=== PATIENT | female | born 1945 | race Caucasian/White ===

== ENCOUNTER 2024-07-01 12:50 | Observation (INO) | payer MEDICARE, SELFPAY ==
[2024-07-01] VITALS (13 sets, daily range): BP systolic 125–154; BP diastolic 64–88; PULSE 58–75; RESP 16–20; TEMP 36.7–36.8; O2SAT 91–98; BMI 36.6
--- NOTE | 2024-07-01 13:03 | XR_ITS ---
FINAL REPORT CLINICAL HISTORY: .fall, right knee pain FINDINGS: AP, lateral and oblique views of the right knee were obtained. There is no prior exam for comparison. There is no acute osseous abnormality of the right knee. There is mild degenerative joint disease. The soft tissues are normal. There is no joint effusion. IMPRESSION: No acute osseous abnormality of the right knee. Reviewed, Interpreted and Dictated by Kristy Thibodeaux MD Transcribed by Sophia Landrum Authenticated and [facility]
--- NOTE | 2024-07-01 13:03 | XR_ITS ---
FINAL REPORT CLINICAL HISTORY: Shortness of breath COMPARISON: None FINDINGS: A portable view of the chest was obtained. There is cardiomegaly. A left pacemaker is present. The mediastinal silhouette is within normal limits. There are chronic increased interstitial markings. There is no focal infiltrate, effusion, or pneumothorax. IMPRESSION: Cardiomegaly. Otherwise, no acute abnormality. Reviewed, Interpreted and Dictated by Kristy Thibodeaux MD Transcribed by Penny Cortez Authenticated and [facility]
--- NOTE | 2024-07-01 13:04 | CA_ITS ---
FINAL REPORT CLINICAL HISTORY: Right leg warm to touch, redness, edema s/p fall FINDINGS: DUPLEX VENOUS SONOGRAPHY OF THE RIGHT LOWER EXTREMITY Multiple transverse and longitudinal scans were performed of the femoropopliteal deep venous system, with augmentation and compression maneuvers. Normal phasic flow was noted in the visualized deep venous system. No intraluminal increased echogenicity is noted to suggest thrombus. There is normal compression and augmentation of the venous structures. No abnormal venous collaterals are seen. IMPRESSION: No evidence of deep venous thrombosis of the right lower extremity. Reviewed, Interpreted and Dictated by Kristy Thibodeaux MD Transcribed by Mishel Stewart Authenticated and [facility]
[2024-07-01] MEDS: OXYCODONE 5MG W/APAP 325MG TABLET 1 EACH PO (13:20)
--- NOTE | 2024-07-01 13:29 | ED_ITS ---
<Statement entered by Yessica White DO - 07/01/24 15:50> I was consulted by the DEAN, and we discussed the complexity of the problems being addressed. I approved the treatment and management plan for this patient's care in the emergency department, thus performing a substantive portion of the medical decision making. Yessica White DO Discharge Plan Disposition Chief Complaint: Extremity Injury, Lower Discharge ED Provider: Yessica White General Adult HPI General Chief complaint: Extremity Injury, Lower Stated complaint: R knee pain shoots down leg Time Seen by Provider: 07/01/24 12:58 Mode of Arrival: Wheelchair Source of Information: Patient and Relative Description of Symptoms (Recalled from ER Triage Doc. by RN): pt daughter brought her here for rihgt knee pain that started on friday and has continued to get worse, pt unable to bear weight History of Present Illness HPI narrative: patient is a 78-year-old female PMHx COPD, bipolar, CHF, chronic A-fib who presents to the ED for complaints of right knee pain, inability to care for herself. Patient states on she had a fall, was not evaluated for this fall or since the fall, reports that she did not fall on her right knee however her right knee was injured during the fall. Related Data Home Medications ?Medication ?Instructions ?Recorded ?Confirmed amlodipine 10 mg tablet 10 mg PO DAILY 07/01/24 07/01/24 hydralazine 10 mg tablet 10 mg PO BID 07/01/24 07/01/24 mirtazapine 15 mg tablet 15 mg PO DAILY 07/01/24 07/01/24 olanzapine 5 mg tablet 5 mg PO DAILY 07/01/24 07/01/24 rivaroxaban 15 mg tablet (Xarelto) 15 mg PO DAILY 07/01/24 07/01/24 sertraline 100 mg tablet 100 mg PO DAILY 07/01/24 07/01/24 simvastatin 20 mg tablet 20 mg PO DAILY 07/01/24 07/01/24 Allergies Allergy/AdvReac Type Severity Reaction Status Date / Time alprazolam (From Xanax) Allergy Unknown Verified 07/01/24 13:39 allergy reaction diphenhydramine (From Allergy Unknown Verified 07/01/24 13:39 Benadryl) allergy reaction doxycycline Allergy Unknown Verified 07/01/24 13:39 allergy reaction latex Allergy Unknown Verified 07/01/24 13:39 allergy reaction lorazepam (From Ativan) Allergy Unknown Verified 07/01/24 13:39 allergy reaction nicotine Allergy Unknown Verified 07/01/24 13:39 allergy reaction Penicillins Allergy Hives Verified 07/01/24 13:39 pseudoephedrine (From Allergy Unknown Verified 07/01/24 13:39 Sudafed) allergy reaction shellfish derived Allergy Unknown Verified 07/01/24 13:39 allergy reaction tetracycline Allergy Unknown Verified 07/01/24 13:39 allergy reaction varenicline (From Chantix) Allergy Unknown Verified 07/01/24 13:39 allergy reaction clindamycin AdvReac Nausea Verified 07/01/24 13:39 Sulfa (Sulfonamide AdvReac Vomiting Verified 07/01/24 13:39 Antibiotics) sulfamethoxazole (From AdvReac Diarrhea Verified 07/01/24 13:39 Bactrim) trimethoprim (From Bactrim) AdvReac Diarrhea Verified 07/01/24 13:39 PFSH PFSH Disclaimer: The information contained in this section may have been updated after the patient was seen, as this information can be updated by other users. Medical History COPD (chronic obstructive pulmonary disease) Bipolar 1 disorder CHF (congestive heart failure) Chronic a-fib Surgical History (Updated 07/01/24 @ 13:40 by Ashvin Hogan RN) History of tonsillectomy History of appendectomy History of cholecystectomy History of total left hip replacement Social History Smoking Status: Never smoker alcohol intake: never current occupational status: unemployed Travel in the last 8 weeks?: None Other Medical History Have you received the Pneumonia Vaccine: No ROS Obtained: Yes Systems reviewed as appropriate & no additional complaints except as documented Physical Exam General General appearance: alert and in no apparent distress Head Head exam: atraumatic and normocephalic Eye Eye exam: Present normal appearance and PERRL ENT ENT exam: Present normal exam Neck Neck exam: Present normal inspection Chest Chest inspection: Present normal inspection and symmetric chest wall rise; Absent tenderness Respiratory Respiratory exam: Present normal lung sounds bilaterally Cardiovascular Cardiovascular exam: Present regular rate Abdominal Exam Abdominal exam: Present soft and normal bowel sounds; Absent tenderness Extremities Exam Extremities exam: Present other (Right lower extremity mild erythema, neurovascular status intact. Right knee tenderness, generalized. Mild inferior patella edema) Back Exam Back exam: Present normal inspection and full ROM Neurological Exam Neurological exam: Present alert and oriented X3 Psychiatric Psychiatric exam: Present normal affect and normal mood Skin Skin exam: Present warm and dry Medical Decision Making Medical Records Screening: Per USPSTF and CDC recommendations, given the prevalence of disease in our region, it is our hospital?s policy to screen for HIV and viral Hepatitis for all patients aged 18 and over and those with ongoing risk factors. Umberto Inquiry Pt receiving controlled substance: No Vital Signs: 07/01/24 13:01 07/01/24 13:09 07/01/24 13:30 Temperature 98.2 F Temperature Source Oral Pulse Rate 58 L 61 Pulse Rate [Left Radial] 73 Respiratory Rate 20 Blood Pressure 134/66 153/80 H Blood Pressure [Right Arm] 154/72 H Blood Pressure Mean Blood Pressure Mean [Right Arm] 99 02 Sat by Pulse Oximetry 95 95 95 Oxygen Delivery Method Room Air 07/01/24 14:00 07/01/24 14:30 07/01/24 15:05 Temperature Temperature Source Pulse Rate 68 67 Pulse Rate [Left Radial] Respiratory Rate Blood Pressure 153/80 H 126/75 133/88 Blood Pressure [Right Arm] Blood Pressure Mean 105 Blood Pressure Mean [Right Arm] 02 Sat by Pulse Oximetry 92 L 93 L Oxygen Delivery Method 07/01/24 15:45 07/01/24 16:00 07/01/24 16:30 Temperature Temperature Source Pulse Rate 68 70 73 Pulse Rate [Left Radial] Respiratory Rate Blood Pressure 125/65 141/70 H 148/79 H Blood Pressure [Right Arm] Blood Pressure Mean Blood Pressure Mean [Right Arm] 02 Sat by Pulse Oximetry 91 L 94 L 94 L Oxygen Delivery Method Lab Data Lab Results 07/01/24 14:04: WBC 8.3, RBC 4.63, Hgb 13.9, Hct 42.5, MCV 91.8, MCH 30.0, MCHC 32.7, RDW 12.8, Plt Count 243, MPV 9.5, Neut % (Auto) 64.1, Lymph % (Auto) 22.9, [place] % (Auto) 11.1 H, Eos % (Auto) 1.1, Baso % (Auto) 0.6, Neut # (Auto) 5.3, Lymph # (Auto) 1.9, [place] # (Auto) 0.9, Eos # (Auto) 0.1, Baso # (Auto) 0.1, ESR 78 H, Sodium 137, Potassium 4.3, Chloride 106, Carbon Dioxide 29, Anion Gap 6.3, BUN 21 H, Creatinine 0.90, Estimated Creat Clear 65, Estimated GFR 60, Est GFR ( Amer) 73, Glucose 106 H, Calcium 10.0, Total Bilirubin 0.5, AST 34, ALT 17, Alkaline Phosphatase 90, C-Reactive Protein 30.7 H, Total Protein 7.5, Albumin 4.3, Globulin 3.2, Albumin/Globulin Ratio 1.3 07/01/24 14:04 07/01/24 14:04 Orders (Tests/Meds): ED MEDICATIONS Discontinued Medications Generic Name Dose Route Start Last Admin Trade Name Freq PRN Reason Stop Dose Admin Oxycodone/Acetaminophen 1 each 07/01/24 13:03 07/01/24 13:20 Oxycodone 5mg W/Apap 325mg Tablet PO 07/01/24 13:04 1 each ONCE ONE Administration ORDERS Category Date Time Status CXR --portable [XR chest portable] Stat Exams 07/01/24 13:03 Completed Knee XR right 3 views [XR knee RT 3V] Stat Exams 07/01/24 13:03 Completed CBC w/Auto Diff [Complete Blood Count Auto Diff] Stat Lab 07/01/24 14:04 Completed CMP [Comprehensive Metabolic Panel] Stat Lab 07/01/24 14:04 Completed CRP [C-Reactive Protein] Stat Lab 07/01/24 14:04 Completed Erythrocyte Sedimentation Rate Stat Lab 07/01/24 14:04 Completed CA venous doppler LE RT Stat Y 07/01/24 13:04 Completed Medical Decision Narrative: In summary, patient is a 78-year-old female PMHx COPD, bipolar, CHF, chronic A- fib who presents to the ED for complaints of right knee pain, inability to care for herself. Patient states on East she had a fall, was not evaluated for this fall or since the fall, reports that she did not fall on her right knee however her right knee was injured during the fall. She states that her right knee pain is worse and causing her to be unable to care for herself at home. Patient denies any other complaints. She denies hitting her head, denies fever, chills, body aches, headache, visual disturbances, posterior neck pain, back pain, chest pain, shortness of breath, abdominal pain, nausea, vomiting, dysuria, diarrhea Upon initial evaluation patient is alert, oriented and cooperative. She is hemodynamically stable. Her physical exam is remarkable for right knee generalized tenderness, right lower extremity mild erythema, neurovascular status intact. Differential diagnosis include infectious process, fracture, malalignment, septic arthritis, cellulitis, DVT, among others. Discussed with patient that we will evaluate with hematologic labs, DVT ultrasound, we have contacted social work to assist with home needs and will proceed as needed. Hematologic labs reviewed, CBC unremarkable for any leukocytosis, stable H&H. CMP unremarkable for any actionable abnormalities. CRP 30.7, ESR 78. Final read of the chest x-ray remarkable for cardiomegaly, no acute findings. X-ray of the knee unremarkable for any osseous abnormality. Venous duplex unremarkable for any DVT. After patient was evaluated by PT OT, they recommend that patient have placement. Discussed with patient that due to PT OT recommendations, is best that we admit her for usp placement. Advised her that she does have a right lower extremity cellulitis, we will treat this with oral Bactrim. Patient is agreeable to plan of care at this time. She remains hemodynamically stable. Critical Care Critical Care Time Critical Care Time: No
--- NOTE | 2024-07-01 13:33 | PC.NURSE ---
Case management notified of need to possible placement.
[2024-07-01 14:19] LABS: Basophils # 0.1 K/mm3 (0-0.2); Basophils % 0.6 % (0.1-2.0); Eosinophils # 0.1 Kmm3 (0.0-0.4); Eosinophils % 1.1 % (0.1-12.0); Hematocrit 42.5 % (37.0-47.0); Hemoglobin 13.9 g/dL (12.2-16.2); Immature Granulocytes # 0.02 10^3uL; Immature Granulocytes % 0.2 %; Lymphocytes # 1.9 K/mm3 (0.7-4.5); Lymphocytes % 22.9 % (10-50); Mean Corpuscular HGB Conc 32.7 g/dL (31.8-35.4); Mean Corpuscular Volume 91.8 fl (81-99); Mean Platelet Volume 9.5 fl (7.4-10.4); Monocytes # 0.9 K/mm3 (0.1-1.0); Monocytes % 11.1 % (1.7-9.3); Neutrophils # 5.3 K/mm3 (1.8-7.8); Neutrophils % 64.1 % (37.0-80.0); Nucleated Red Blood Cells # 0 10^3/uL; Nucleated Red Blood Cells % 0 %; Platelet Count 243 K/mm3 (142-424); Red Blood Count 4.63 M/mm3 (4.20-5.40); Red Cell Distribution Width 12.8 % (11.5-17.5); Red Cell Distribution Width-SD 43.2 fL; White Blood Count 8.3 K/mm3 (4.8-10.8)
[2024-07-01 14:29] LABS: Alanine Aminotransferase 17 U/L (12-78); Albumin Level 4.3 g/dl (3.5-5.0); Albumin/Globulin Ratio 1.3 (1.1-1.8); Alkaline Phosphatase 90 U/L (38-126); Anion Gap 6.3 mEq/L (5-15); Aspartate Amino Transferase 34 U/L (14-36); Bilirubin,Total 0.5 mg/dl (0.2-1.3); Blood Urea Nitrogen 21 mg/dl (7-17); Carbon Dioxide 29 mmol/L (22.0-30.0); Chloride 106 mmol/L (98-107); Creatinine Clearance Estimated 65 mL/min (50-200); Estimated Glomerular Filt Rate 60 ml/min (>60); GFR (African American) 73 ML/MIN (>60); Globulin 3.2 g/dL (1.3-3.2); Glucose 106 mg/dl (74-100); Potassium 4.3 mmoL/L (3.5-5.1); Sodium 137 mmol/L (136-145); Total Protein,Serum 7.5 g/dl (6.3-8.2)
[2024-07-01 14:34] LABS: C-Reactive Protein 30.7 mg/L (0-4)
[2024-07-01 14:59] LABS: Erythrocyte Sedimentation Rate 78 mm/hr (0-30)
--- NOTE | 2024-07-01 16:37 | HMH.PTEV ---
Physical Therapy Evaluation Rehab PT IP Evaluation Start: 07/01/24 16:21 Freq: ONCE Status: Active Protocol: Document 07/01/24 16:26 JJ (Rec: 07/01/24 16:36 JJ [id number]) Subjective/History History History Per h&p, In summary, patient is a 78-year-old female PMHx COPD, bipolar, CHF, chronic A- fib who presents to the ED for complaints of right knee pain , inability to care for herself. Patient states on Easter she had a fall, was not evaluated for this fall or since the fall, reports that she did not fall on her right knee however her right knee was injured during the fall. She states that her right knee pain is worse and causing her to be unable to care for herself at home. Patient denies any other complaints. She denies hitting her head, denies fever, chills, body aches, headache, visual disturbances, posterior neck pain, back pain, chest pain, shortness of breath, abdominal pain, nausea, vomiting, dysuria, diarrhea Subjective Subjective Pt is alert and orientedx3. Dtr present in room during evaluation. Pt reports that she lives alone and was completely independent with all ADLs and mobility prior to just a few days ago when her R knee began to hurt. Pt reports that she did utilize a rollator walker for most ambulation. Pt reports that she is currently unable to walk and reports excruciating right knee pain with weight bearing. New diagnosis of cancer in past 12 No months? [facility] How much help from another person do you currently need... Turning from your back to your side A lot while in a flat bed without using bedrails? Moving from lying on back to sitting on A lot the side of a flat bed without using bedrails? Moving to and from a bed to a chair ( A lot including a wheelchair)? Standing up from a chair using your arms A little ? (e.g., wheelchair, bedside chair) Walking in hospital room? A lot Climbing 3-5 steps with a railing? A lot Mobility Score 13 Mobility Level [facility] Mobility Calculator Mobility 4 Move to chair/ commode Rehab PT IP Eval Objective Appearance Patient Behavior Appropriate,Patient Baseline Patient Orientation Person,Place,Time Difficulty following instructions none Speech Pattern Clear,Patient Baseline Ambulation Patient Able to Ambulate Yes Ambulation Observation IP General Gait Pattern Observation Antalgic Gait,Decrease Weight Bear (R),Decrease Stride Lngth (L) Ambulation Distance (feet) 2 Ambulation Ability Moderate x 2 (50% assist) Balance Ability to Arise Able, uses arms to help Sitting Balance Leans or slides in chair Standing Balance Unsteady Dynamic Sitting Balance Ability Fair Dynamic Standing Balance Ability Poor Transfers Bed Transfer Ability Moderate x 2 (50% assist) Chair Transfer Ability Moderate x 2 (50% assist) Sit to Stand Bed Transfer Ability Moderate x 2 (50% assist) Sit to Stand Chair Transfer Ability Moderate x 2 (50% assist) Rehab PT IP prob,goals,plan Problems Date of Evaluation: 07/01/24 PT IP Problems Bed Mobility,Transfers,Gait, Balance,Self care,Safety Rehab Potential Rehab Potential Good Equipment Needs Assistive Devices None / NA Plan PT Intervention Plan Bed Mobility,Transfers,Gait, Balance,Self care,Safety, Therapeutic Exercise PT Plan Frequency BID Duration LOS Discharge Goals Bed Transfer Ability Minimal x 1 (25% assist) Sit to Stand Chair Transfer Ability Minimal x 1 (25% assist) Ambulation Assistive Device Rolling Walker Ambulation Distance (feet) 10 Discharge Plan PT Discharge Plan PT is recommending placement for further rehab upon discharge from the hospital. Pt does not present safely for a discharge to home at this time. Skilled PT would also benefit this pt during her acute stay. Eval Complexity Eval Charge Codes 51100 - Moderate Complexity PHYSICIAN CERTIFICATION: I certify the specified therapy services for Beba Trujillo are required, authorized, and reviewed every 30 days.
--- NOTE | 2024-07-01 16:49 | HMH.OTEV ---
OT Inpatient Evaluation Rehab OT IP Evaluation Start: 07/01/24 16:22 Freq: ONCE Status: Active Protocol: Document [facility]/01/24 16:[facility] (Rec: 07/01/24 16:49 [facility] [id number]) Rehab OT IP Assessment Subjective History Per h&p, In summary, patient is a 78-year-old female PMHx COPD, bipolar, CHF, chronic A- fib who presents to the ED for complaints of right knee pain , inability to care for herself. Patient states on Easter she had a fall, was not evaluated for this fall or since the fall, reports that she did not fall on her right knee however her right knee was injured during the fall. She states that her right knee pain is worse and causing her to be unable to care for herself at home. Patient denies any other complaints. She denies hitting her head, denies fever, chills, body aches, headache, visual disturbances, posterior neck pain, back pain, chest pain, shortness of breath, abdominal pain, nausea, vomiting, dysuria, diarrhea [ End ] Subjective Pt is alert and orientedx3. Dtr present in room during evaluation. Pt reports that she lives alone and was completely independent with all ADLs and mobility prior to just a few days ago when her R knee began to hurt. Pt reports that she did utilize a rollator walker for most functional transfers. Pt reports that she is currently unable to walk and reports excruciating right knee pain with weight bearing. [ End ] Objective Patient Orientation Person,Place,Birthday Right Upper Extremity Gross ROM WFL Left Upper Extremity Gross ROM WFL Bed Mobility bed mobility-scooting,bed mobility - supine/sit Assist Level Moderate x 2 (50% assist) Transfer Training Sit/Stand/Step Transfer Assist Level Moderate x 2 (50% assist) Rehab OT IP prob,goals,plan Problems Date of Evaluation: 07/01/24 OT IP Problems Bed Mobility,Transfers,Balance ,Self care,Safety Rehab Potential Rehab Potential Good Equipment Needs Assistive Devices Rolling / Wheeled Walker Plan OT intervention Plan Bed Mobility,Transfers,Balance ,Self care,Safety,Therapeutic Exercise OT Plan Frequency Daily Duration LOS Discharge Goals Bed Mobility Ability Assistance x1 Sit to Stand Chair Transfer Ability Moderate x 1 (50% assist) Chair Transfer Ability Moderate x 1 (50% assist) Chair Transfer Technique Sit to/from Ambulatory Chair Transfer Assistive Devices Rolling Walker Feeding Ability Assist with Tray Set Up Lower Body Dressing Ability Maximum Assistance Upper Body Dressing Ability Minimal Assistance Bathing Ability Maximum Assistance Performing Toilet Hygiene Ability Minimal Assistance Overall Commode/Toilet Transfer Ability Minimal Assistance,Moderate Assistance Commode/Toilet Transfer Technique Sit to/from Ambulatory Commode/Toilet Transfer Assistive Grab Bars Devices Discharge Plan OT Discharge Plan OT is recommending placement for further rehab upon discharge from the hospital. Pt does not present safely for a discharge to home at this time. Skilled OT would also benefit this pt during her acute stay. Eval Complexity Eval Charge Codes 16582 - Moderate Complexity PHYSICIAN CERTIFICATION: I certify the specified therapy services for Beba Trujillo are required, authorized, and reviewed every 30 days.
--- NOTE | 2024-07-01 16:52 | PC.NURSE ---
consulting hospitalist for admission
--- NOTE | 2024-07-01 17:29 | PC.NURSE ---
rounded on patient, no needs voiced at this time.
--- NOTE | 2024-07-01 17:59 | PC.NURSE ---
pt rounded on no needs at this time.
--- NOTE | 2024-07-01 18:02 | PC.NURSE ---
CALLED REPORT TO [facility] HOWEVER ROOM IS NOT CLEAN ER CHARGE MADE AWARE
--- NOTE | 2024-07-01 18:50 | P.HP_ITS ---
<Statement entered by Chepe Beltrán MD - 07/03/24 13:00> I personally evaluated the patient and agree with the plan of care as outlined by the [facility]. History of Present Illness *Admission Date: 07/01/24 *Reason for visit:: Knee pain *History of present illness: This is a 78-year-old female who has a past medical history significant for hypertension, hyperlipidemia, and atrial fibrillation (currently prescribed Xarelto), who presents with a chief complaint of inability to perform her ADLs due to right knee pain from a fall sustained during . Due to patient's symptoms, she presented to the emergency room for evaluation. While in the emergency room, plain films of the right knee were negative for any acute osseous abnormality, chest x-ray revealed cardiomegaly, and venous Doppler revealed no evidence of DVT to right lower extremity. Patient was evaluated by physical therapy and Occupational Therapy who recommended skilled level rehab. As a result, patient has been admitted for further management. During my evaluation of the patient, patient states she fell on and she was okay after the fall. Patient states she cannot stand. She states that she did have a laceration/abrasion to her left upper extremity that healed. Over period of time, patient had increasing difficulty performing her ADLs due to pain to the right knee. After the fall, patient did not have any evaluation with any healthcare facility. Unfortunately, her pain has become unbearable for her to manage at home. She did state that she did not lose consciousness and remembers the fall. She is currently denying any chest pain, lightheadedness, dizziness, fever, chills, rigors, nausea, vomiting, or diarrhea. Additional pertinent vitals obtained include ESR 78, BUN 21, blood glucose of 106, and CRP of 30.7. [facility] Disclaimer: The information contained in this section may have been updated after the patient was seen, as this information can be updated by other users. Medical History (Updated 07/01/24 @ 18:59 by Ariel Vaughn APRN) COPD (chronic obstructive pulmonary disease) Bipolar 1 disorder CHF (congestive heart failure) Chronic a-fib Surgical History (Updated 07/01/24 @ 13:40 by Ashvin Hogan RN) History of tonsillectomy History of appendectomy History of cholecystectomy History of total left hip replacement Social History (Updated 07/01/24 @ 17:56 by Neida Bryant APRN) Smoking Status: Never smoker alcohol intake: never current occupational status: unemployed Travel in the last 8 weeks?: None Have you lived/traveled outside US in past 30 days?: No Contact w/someone who lives/traveled outside US past 30 days?: No Exposure to someone with infectious disease in past 14 days?: No Do you have a fever (greater than 100.4 F or 38 C)?: No Have you tested positive for COVID-19?: No Exposed to someone with COVID-19 in past 14 days?: No Do you have a sore throat?: No Do you have a cough?: No Do you have any weakness?: No Do you have any diarrhea?: No Are you experiencing any unusual bleeding?: No Do you have any muscle aches/pain?: No Do you have any abdominal pain?: No Are you experiencing loss of taste or smell?: No Other Medical History Have you received the Pneumonia Vaccine: No Review of Systems Review of Systems Review of systems:: pertinent systems reviewed and negative unless documented below Constitutional Constitutional: Reports other Comments: Difficulty ambulating due to pain in right knee from prior fall Eyes Eyes: Reports system reviewed and no additional complaints, except as documented ENT Ears, Nose, Mouth, and Throat: Reports system reviewed and no additional complaints, except as documented *Cardiovascular Cardiovascular: Reports system reviewed and no additional complaints, except as documented *Respiratory Respiratory: Reports system reviewed and no additional complaints, except as documented *Gastrointestinal Gastrointestinal: Reports system reviewed and no additional complaints, except as documented *Genitourinary Genitourinary: Reports system reviewed and no additional complaints, except as documented *Musculoskeletal Musculoskeletal: Reports joint swelling Integumentary/Breasts Skin/Breast: Reports system reviewed and no additional complaints, except as documented *Neurologic Neurologic: Reports system reviewed and no additional complaints, except as documented Psychiatric Psychiatric: Reports system reviewed and no additional complaints, except as documented Endocrine Endocrine: Reports system reviewed and no additional complaints, except as documented Hematologic/Lymphatic Hematologic/Lymphatic: Reports system reviewed and no additional complaints, except as documented Allergic/Immunologic Allergic/Immunologic: Reports system reviewed and no additional complaints, except as documented Meds Home Medications and Allergies Home Medications ?Medication ?Instructions ?Recorded ?Confirmed ?Type amlodipine 10 mg tablet 10 mg PO DAILY 07/01/24 07/01/24 History hydralazine 10 mg tablet 10 mg PO BID 07/01/24 07/01/24 History mirtazapine 15 mg tablet 15 mg PO DAILY 07/01/24 07/01/24 History olanzapine 5 mg tablet 5 mg PO DAILY 07/01/24 07/01/24 History rivaroxaban 15 mg tablet (Xarelto) 15 mg PO DAILY 07/01/24 07/01/24 History sertraline 100 mg tablet 100 mg PO DAILY 07/01/24 07/01/24 History simvastatin 20 mg tablet 20 mg PO DAILY 07/01/24 07/01/24 History New Prescriptions to Start Prescriptions: Allergies Allergy/AdvReac Type Severity Reaction Status Date / Time alprazolam (From Xanax) Allergy Unknown Verified 07/01/24 13:39 allergy reaction diphenhydramine (From Allergy Unknown Verified 07/01/24 13:39 Benadryl) allergy reaction doxycycline Allergy Unknown Verified 07/01/24 13:39 allergy reaction latex Allergy Unknown Verified 07/01/24 13:39 allergy reaction lorazepam (From Ativan) Allergy Unknown Verified 07/01/24 13:39 allergy reaction nicotine Allergy Unknown Verified 07/01/24 13:39 allergy reaction Penicillins Allergy Hives Verified 07/01/24 13:39 pseudoephedrine (From Allergy Unknown Verified 07/01/24 13:39 Sudafed) allergy reaction shellfish derived Allergy Unknown Verified 07/01/24 13:39 allergy reaction tetracycline Allergy Unknown Verified 07/01/24 13:39 allergy reaction varenicline (From Chantix) Allergy Unknown Verified 07/01/24 13:39 allergy reaction clindamycin AdvReac Nausea Verified 07/01/24 13:39 Sulfa (Sulfonamide AdvReac Vomiting Verified 07/01/24 13:39 Antibiotics) sulfamethoxazole (From AdvReac Diarrhea Verified 07/01/24 13:39 Bactrim) trimethoprim (From Bactrim) AdvReac Diarrhea Verified 07/01/24 13:39 Exam Data for Last 24 hours Vital signs and Labs for Last 24 Hours: Temp Pulse Resp BP Pulse Ox O2 Del Method 98.2 F 72 20 140/73 94 L Room Air 07/01/24 18:01 07/01/24 18:01 07/01/24 18:01 07/01/24 18:01 07/01/24 17:30 07/01/24 18:01 Laboratory Results - last 24 hr 07/01/24 14:04: WBC 8.3, RBC 4.63, Hgb 13.9, Hct 42.5, MCV 91.8, MCH 30.0, MCHC 32.7, RDW 12.8, Plt Count 243, MPV 9.5, Neut % (Auto) 64.1, Lymph % (Auto) 22.9, [place] % (Auto) 11.1 H, Eos % (Auto) 1.1, Baso % (Auto) 0.6, Neut # (Auto) 5.3, Lymph # (Auto) 1.9, [place] # (Auto) 0.9, Eos # (Auto) 0.1, Baso # (Auto) 0.1, ESR 78 H, Sodium 137, Potassium 4.3, Chloride 106, Carbon Dioxide 29, Anion Gap 6.3, BUN 21 H, Creatinine 0.90, Estimated Creat Clear 65, Estimated GFR 60, Est GFR ( Amer) 73, Glucose 106 H, Calcium 10.0, Total Bilirubin 0.5, AST 34, ALT 17, Alkaline Phosphatase 90, C-Reactive Protein 30.7 H, Total Protein 7.5, Albumin 4.3, Globulin 3.2, Albumin/Globulin Ratio 1.3 I & O for Last 24 hours: Intake & Output 06/28/24 06/29/24 06/30/24 07/01/24 23:59 23:59 23:59 23:59 Weight 90.718 kg Constitutional Constitutional: no acute distress *Routine HEENT Exam Head: Present normocephalic and atraumatic Eye: Present EOMI and PERRL ENT: Present mucous membranes moist *Routine Neck Exam Neck: Present supple and trachea midline *Routine Respiratory Exam Respiratory: Present CTA bilaterally, able to speak in complete sentences and symmetric chest movement *Routine Cardiovascular Exam Cardiovascular: Present Normal S1 and Normal S2 *Routine Abdominal Exam Abdominal: Present soft and normoactive bowel sounds *Routine Rectal Exam Rectal:: deferred *Routine Genitalia Exam Genitalia:: deferred *Routine Extremities Exam Extremities: Present full ROM, pulses intact and normal capillary refill Routine Back/Spine/Pelvis Exam Back/Spine: Present full ROM *Routine Skin Exam Skin: Present intact, dry, warm and normal turgor *Routine Neurological Exam Neurological: Present alert, oriented X3, CN II-XII intact, moving all extremities and normal speech Routine Psychiatric Exam Psychiatric: Present normal affect, normal thought process, cooperative, good insight and good judgment H&P: Result Impressions 78-year-old female who presents sustaining a fall on Easter. Pain to knee has made impossible for patient to stand and perform ADLs Assessment and Plan *Assessment and plan (1) Fall: Status: Acute Qualifiers: Encounter type: initial encounter Qualified Code(s): W19.XXXA - Unspecified fall, initial encounter Category: Medical Code(s): W19.XXXA - Unspecified fall, initial encounter (2) Right knee pain: Status: Acute Qualifiers: Chronicity: unspecified Qualified Code(s): M25.561 - Pain in right knee Category: Medical Code(s): M25.561 - Pain in right knee (3) Elevated erythrocyte sedimentation rate: Status: Acute Category: Medical Code(s): R70.0 - Elevated erythrocyte sedimentation rate (4) Elevated C-reactive protein (CRP): Status: Acute Category: Medical Code(s): R79.82 - Elevated C-reactive protein (CRP) Plan Assessment: Ground-level fall without trauma - Patient has been in evaluated physical therapy and they are recommending inpatient rehab Right knee pain - Will give short-term opioid for pain management Elevated ESR/CRP -Will monitor for now Cellulitis -On exam, I do not appreciate findings consistent with cellulitis -Hold off on antibiotics from this point Plan: Admit patient to [facility] Will continue physical therapy and Occupational Therapy Case management Cardiac diet 5 mg [place] p.o. every 4 hours pain moderate pain 400 mg of ibuprofen every 6 hours PMR to pain 4 mg Zofran IV push every 8 hours pain nausea vomit Full code I have discussed this case with attending physician Dr. Beltrán and I look forward to more input
[2024-07-01] MEDS: HYDRALAZINE 10MG TABLET 10 MG PO (21:40)
[2024-07-01] MEDS: PRAVASTATIN 40MG TAB 40 MG PO (21:40)
[2024-07-01] MEDS: HYDROCODONE/APAP 5/325 MG TABLET 1 TAB PO (22:04)
[2024-07-02] VITALS: PULSE 80
[2024-07-02 03:48] VITALS: BP 135/67; PULSE 70; RESP 18; TEMP 36.6; O2SAT 90; BMI 36.9
--- NOTE | 2024-07-02 04:35 | PC.NURSE ---
Pt is A&Ox4. Pt did c/o right leg pain and was treated per APR. Pt has a colostomy, wafer and bag was changed this shift. Pt has not ambulated this shift and states that it is to painful. Pt has not had any acute changes this shift and denies needs when asked.
[2024-07-02 08:00] VITALS: BP 126/58; PULSE 68; PULSE 76; RESP 16; TEMP 36.8; O2SAT 90
--- NOTE | 2024-07-02 08:22 | HMH.PHAINT1 ---
Pharmacy Intervention Comments: HOME MEDICATION LIST VERIFIED USING LIST FROM OUTPATIENT PHARMACY
[2024-07-02] MEDS: AMLODIPINE 10MG TABLET 10 MG PO (08:41)
[2024-07-02] MEDS: RIVAROXABAN 15MG TABLET 15 MG PO (08:41)
[2024-07-02] MEDS: HYDRALAZINE 10MG TABLET 10 MG PO (08:41)
[2024-07-02] MEDS: SERTRALINE 100MG TABLET 100 MG PO (08:41)
--- NOTE | 2024-07-02 09:05 | SW/DCPLANNER ---
Addendum entered by Oralia Kahn 07/02/24 13:45: Patient has been approved SNF level of care and will discharge to [facility] today. Addendum entered by Oralia Kahn 07/02/24 11:34: Arianna Valdez stated that precert will be started today. I have updated patient, family and MD. Patient will discharge to [facility] level of care once approved by insurance. Addendum entered by Oralia Kahn 07/02/24 10:50: Antolin Valdez will be at bedside today to evaluate this patient. Original Note: I spoke w/ this patient regarding discharge planning. PT/OT evaluated patient and recommended SNF level of care. Patient is agreeable to placement at this time. Patient stated that she has been to [facility] in the past and prefers this facility at time of discharge. Patient information will be faxed to Arianna Valdez this AM. Per MD patient is medically stable for discharge. I will continue to follow up.
[2024-07-02] MEDS: HYDROCODONE/APAP 5/325 MG TABLET 1 TAB PO (10:28)
[2024-07-02 12:00] VITALS: BP 150/75; PULSE 79; RESP 18; TEMP 36.6; O2SAT 94
[2024-07-02 13:42] VITALS: BMI 36.9
--- NOTE | 2024-07-02 13:59 | P.DS_ITS ---
General Admission date:: 07/01/24 HPI HPI HPI: This is a 78-year-old female who has a past medical history significant for hypertension, hyperlipidemia, and atrial fibrillation (currently prescribed Xarelto), who presents with a chief complaint of inability to perform her ADLs due to right knee pain from a fall sustained during . Due to patient's symptoms, she presented to the emergency room for evaluation. While in the emergency room, plain films of the right knee were negative for any acute osseous abnormality, chest x-ray revealed cardiomegaly, and venous Doppler revealed no evidence of DVT to right lower extremity. Patient was evaluated by physical therapy and Occupational Therapy who recommended skilled level rehab. As a result, patient has been admitted for further management. During my evaluation of the patient, patient states she fell on and she was okay after the fall. Patient states she cannot stand. She states that she did have a laceration/abrasion to her left upper extremity that healed. Over period of time, patient had increasing difficulty performing her ADLs due to pain to the right knee. After the fall, patient did not have any evaluation with any healthcare facility. Unfortunately, her pain has become unbearable for her to manage at home. She did state that she did not lose consciousness and remembers the fall. She is currently denying any chest pain, lightheadedness, dizziness, fever, chills, rigors, nausea, vomiting, or diarrhea. Additional pertinent vitals obtained include ESR 78, BUN 21, blood glucose of 106, and CRP of 30.7. Hospital Course Hospital Course Hospital Course: Beba Trujillo is a 78 year old female who presented with progressive fun ctional decline after fall on day to right knee and ability to bear weight. #Functional decline #Right knee pain - Knee x-ray without acute abnormalities. Range of motion intact. Low suspicion for tendinous/ligamentous tear. Likely knee contusion. - Unable to bear weight. PT/OT consulted, recommending SNF. [facility] graciously accepted patient. ? Weightbearing as tolerated. Tylenol, ibuprofen preferred for pain control. [place] for breakthrough pain. #Chronic A-fib ? Rate controlled. Continue home rivaroxaban 15 mg. #Hypertension ? Continue amlodipine, hydralazine. #Bipolar 1 disorder ? Continue home mirtazapine, olanzapine, sertraline. Total time spent on discharge: 31 minutes on chart review, counseling, documentation, and direct care with patient. Exam Data for Last 24 hours Vital signs and Labs for Last 24 Hours: Temp Pulse Resp BP Pulse Ox O2 Del Method 97.8 F 79 18 150/75 H 94 L Room Air 07/02/24 12:00 07/02/24 12:00 07/02/24 12:00 07/02/24 12:00 07/02/24 12:00 07/02/24 13:00 Laboratory Results - last 24 hr 07/01/24 14:04: WBC 8.3, RBC 4.63, Hgb 13.9, Hct 42.5, MCV 91.8, MCH 30.0, MCHC 32.7, RDW 12.8, Plt Count 243, MPV 9.5, Neut % (Auto) 64.1, Lymph % (Auto) 22.9, [place] % (Auto) 11.1 H, Eos % (Auto) 1.1, Baso % (Auto) 0.6, Neut # (Auto) 5.3, Lymph # (Auto) 1.9, [place] # (Auto) 0.9, Eos # (Auto) 0.1, Baso # (Auto) 0.1, ESR 78 H, Sodium 137, Potassium 4.3, Chloride 106, Carbon Dioxide 29, Anion Gap 6.3, BUN 21 H, Creatinine 0.90, Estimated Creat Clear 65, Estimated GFR 60, Est GFR ( Amer) 73, Glucose 106 H, Calcium 10.0, Total Bilirubin 0.5, AST 34, ALT 17, Alkaline Phosphatase 90, C-Reactive Protein 30.7 H, Total Protein 7.5, Albumin 4.3, Globulin 3.2, Albumin/Globulin Ratio 1.3 I & O for Last 24 hours: Intake & Output 06/29/24 06/30/24 07/01/24 07/02/24 23:59 23:59 23:59 23:59 Intake Total 360 / 360 600 / 600 Output Total 650 / 650 Balance 360 / 360 -50 / -50 Weight 90.718 kg 91.1 kg Constitutional Constitutional: no acute distress *Routine HEENT Exam Head: Present normocephalic Eye: Present EOMI and PERRL ENT: Present mucous membranes moist *Routine Neck Exam Neck: Present supple; Absent lymphadenopathy *Routine Respiratory Exam Respiratory: Present CTA bilaterally *Routine Cardiovascular Exam Cardiovascular: Present RRR *Routine Abdominal Exam Abdominal: Present soft and normoactive bowel sounds; Absent tenderness *Routine Extremities Exam Extremities: Absent cyanosis, clubbing or edema *Routine Skin Exam Skin: Present warm; Absent rash *Routine Neurological Exam Neurological: Present alert and oriented X3 Results Data Completed and Pending Labs on day of discharge: Labs from last 24 hours 07/01/24 14:04 WBC 8.3 RBC 4.63 Hgb 13.9 Hct 42.5 MCV 91.8 MCH 30.0 MCHC 32.7 RDW 12.8 Plt Count 243 MPV 9.5 Neut % (Auto) 64.1 Lymph % (Auto) 22.9 [place] % (Auto) 11.1 H Eos % (Auto) 1.1 Baso % (Auto) 0.6 Neut # (Auto) 5.3 Lymph # (Auto) 1.9 [place] # (Auto) 0.9 Eos # (Auto) 0.1 Baso # (Auto) 0.1 ESR 78 H Sodium 137 Potassium 4.3 Chloride 106 Carbon Dioxide 29 Anion Gap 6.3 BUN 21 H Creatinine 0.90 Estimated Creat Clear 65 Estimated GFR 60 Est GFR ( Amer) 73 Glucose 106 H Calcium 10.0 Total Bilirubin 0.5 AST 34 ALT 17 Alkaline Phosphatase 90 C-Reactive Protein 30.7 H Total Protein 7.5 Albumin 4.3 Globulin 3.2 Albumin/Globulin Ratio 1.3 DS: Diagnosis Discharge Diagnosis (1) Fall: Status: Acute Code(s): W19.XXXA - Unspecified fall, initial encounter Qualifiers: Encounter type: initial encounter Qualified Code(s): W19.XXXA - Unspecified fall, initial encounter (2) Right knee pain: Status: Acute Code(s): M25.561 - Pain in right knee Qualifiers: Chronicity: unspecified Qualified Code(s): M25.561 - Pain in right knee (3) Elevated erythrocyte sedimentation rate: Status: Acute Code(s): R70.0 - Elevated erythrocyte sedimentation rate (4) Elevated C-reactive protein (CRP): Status: Acute Code(s): R79.82 - Elevated C-reactive protein (CRP) Meds Home Medications and Allergies Home Medications ?Medication ?Instructions ?Recorded ?Confirmed ?Type amlodipine 10 mg tablet 10 mg PO DAILY 07/01/24 07/01/24 History hydralazine 10 mg tablet 10 mg PO BID 07/01/24 07/01/24 History mirtazapine 15 mg tablet 15 mg PO HS 07/01/24 07/02/24 History olanzapine 5 mg tablet 2.5 mg PO BID 07/01/24 07/02/24 History rivaroxaban 15 mg tablet (Xarelto) 15 mg PO DAILY 07/01/24 07/01/24 History sertraline 100 mg tablet 100 mg PO DAILY 07/01/24 07/01/24 History simvastatin 20 mg tablet 20 mg PO HS 07/01/24 07/02/24 History hydrocodone 5 mg-acetaminophen 325 1 tab PO Q6H PRN Moderate to 07/02/24 Rx mg tablet severe pain 3 days #14 tabs ibuprofen 400 mg tablet 400 mg PO Q6HP PRN Moderate to 07/02/24 Rx severe pain 14 days #30 tabs New Prescriptions to Start Prescriptions: hydrocodone-acetaminophen Chepe Beltrán ibuprofen Chepe Beltrán Allergies Allergy/AdvReac Type Severity Reaction Status Date / Time alprazolam (From Xanax) Allergy Unknown Verified 07/01/24 13:39 allergy reaction diphenhydramine (From Allergy Unknown Verified 07/01/24 13:39 Benadryl) allergy reaction doxycycline Allergy Unknown Verified 07/01/24 13:39 allergy reaction latex Allergy Unknown Verified 07/01/24 13:39 allergy reaction lorazepam (From Ativan) Allergy Unknown Verified 07/01/24 13:39 allergy reaction nicotine Allergy Unknown Verified 07/01/24 13:39 allergy reaction Penicillins Allergy Hives Verified 07/01/24 13:39 pseudoephedrine (From Allergy Unknown Verified 07/01/24 13:39 Sudafed) allergy reaction shellfish derived Allergy Unknown Verified 07/01/24 13:39 allergy reaction tetracycline Allergy Unknown Verified 07/01/24 13:39 allergy reaction varenicline (From Chantix) Allergy Unknown Verified 07/01/24 13:39 allergy reaction clindamycin AdvReac Nausea Verified 07/01/24 13:39 Sulfa (Sulfonamide AdvReac Vomiting Verified 07/01/24 13:39 Antibiotics) sulfamethoxazole (From AdvReac Diarrhea Verified 07/01/24 13:39 Bactrim) trimethoprim (From Bactrim) AdvReac Diarrhea Verified 07/01/24 13:39 Discharge Plan Disposition Patient Disposition: Xfer SNF Condition: Fair Discharge Order Discharge Orders: Discharge Order (Routine); Ordered 07/02/24 Ordered By: Chepe Beltrán Follow up Plan Prescriptions/Medication Reconciliation: New hydrocodone-acetaminophen 5-325 mg Tablet 1 tab PO Q6H PRN (Reason: Moderate to severe pain) 3 Days Qty: 14 0RF ibuprofen 400 mg Tablet 400 mg PO Q6HP PRN (Reason: Moderate to severe pain) 14 Days Qty: 30 0RF Continued hydralazine 10 mg tablet 10 mg PO BID Patient Comments: TAKE 1 TABLET BY MOUTH TWICE DAILY sertraline 100 mg tablet 100 mg PO DAILY Patient Comments: TAKE 1 TABLET BY MOUTH ONCE DAILY olanzapine 5 mg tablet 2.5 mg PO BID Patient Comments: TAKE 1/2 (ONE-HALF) TABLET BY MOUTH TWICE DAILY amlodipine 10 mg tablet 10 mg PO DAILY Patient Comments: TAKE 1 TABLET BY MOUTH ONCE DAILY simvastatin 20 mg tablet 20 mg PO HS mirtazapine 15 mg tablet 15 mg PO HS Patient Comments: TAKE 1 TABLET BY MOUTH AT BEDTIME Xarelto 15 mg tablet 15 mg PO DAILY Problem Reconciliation Problems Reviewed?: Yes Patient Discharge Instructions Print Language: Vietnamese Providers Primary Care Provider: Anne Garcia Admit Provider: Chepe Beltrán Attending Provider: Chepe Beltrán
--- NOTE | 2024-07-02 15:07 | PC.WOUNDNOTE ---
Report called to Demetris Valdez.
== END 2024-07-02 16:49 ==
LOC: ER 14:20 → 2ND 17:43
PROVIDERS: Nurse Practitioner; Admitting Provider Student in an Organized Health Care Education/Training Program; Emergency Provider Emergency Medicine; Visit Provider Student in an Organized Health Care Education/Training Program
DX: I48.20 Chronic atrial fibrillation, unspecified (principal); M25.561 Pain in right knee; M79.661 Pain in right lower leg; R70.0 Elevated erythrocyte sedimentation rate; R79.82 Elevated C-reactive protein (CRP); J44.9 Chronic obstructive pulmonary disease, unspecified; Z79.01 Long term (current) use of anticoagulants; Z79.899 Other long term (current) drug therapy; Z88.0 Allergy status to penicillin; Z88.2 Allergy status to sulfonamides; Z91.013 Allergy to seafood; Z88.8 Allergy status to other drugs, medicaments and biological substances; Z88.1 Allergy status to other antibiotic agents; Z88.3 Allergy status to other anti-infective agents; Z91.040 Latex allergy status; E78.5 Hyperlipidemia, unspecified; Z73.89 Other problems related to life management difficulty; I50.9 Heart failure, unspecified; F31.9 Bipolar disorder, unspecified; Z96.642 Presence of left artificial hip joint; Z91.81 History of falling; I11.0 Hypertensive heart disease with heart failure
CPT/HCPCS: 71045; 73562; 80053; 85025; 85651; 86140; 93971; 97116; 97530; 99285; G0378